=== PATIENT | female | born 1930 | race Caucasian/White ===

== ENCOUNTER 2017-02-06 16:44 | Inpatient (IN) | payer OTHER ==
[~2017-02-06] VITALS: Ht 152.4 cm; Wt 73.0 kg
[2017-02-06] MEDS ORDERED: SODIUM CHLORIDE 0.9% 1000ML 250 ML IV STA (17:38)
[2017-02-06] MEDS ORDERED: SODIUM CHLORIDE 0.9% 1000ML 1,000 ML IV STA (17:38)
--- NOTE | 2017-02-06 17:48 | EMERGENCY ROOM VISIT NOTE ---
History Report prepared by Darya: Eileen Smith Under the Supervision of: Dr. Magen Jett M.D. First contact with patient: 17:12 Chief Complaint: CONFUSION Stated Complaint: WEAKNESS, CONFUSION Nursing Triage Summary: Pt arrives BLS for evalution of 3 week hx of general weakness, forgetting what she was doing. Saw PCP last week, given Z-alex. Pt reports she is no better, and too weak to walk to car to go to ED. Pt reports she lives at home alone; son checks on her. Pt very forgetful. 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 The patient states that her weakness is generalized and not specifically on one side of her body. The patient states that she feels very fatigued to the point where she does not want to get out of bed which she states is very unusual for her. She state she has had a productive clear cough with intermittent fevers as high as 102 degrees Fahrenheit as well for the last two weeks. She states she saw her primary care physician 4 days ago where she was prescribed a Zpac and had a negative chest X-Ray. The patient states she is currently on the third day of her Zpac. The patient's son states that he brought the patient into the ED today because her weakness was so severe today she was unable to open her own food up. He states that the patient has also had worsening orientation recently and has been confused about the time of day which he states is new for the patient. The patient states that she has also had increase urinary urgency to the point where she needs to wear diapers at home. The patient denies any sore throat, SOB, chest pain, abdominal pain, nausea, vomiting or constipation. Her weakness has been getting worse over the last week or so. She does have some chronic mild confusion with dates. She feels that she is not as sharp mentally. 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 Review of Systems See HPI for pertinent positives & negatives. A total of 10 systems reviewed and were otherwise negative. Past Medical & Surgical Medical Problems: (1) Hypothyroidism Surgical Problems: (1) Status post appendectomy (2) Status post cataract extraction (3) Status post tonsillectomy Old medical records were reviewed. Nurse's notes were reviewed and I agree with. Family History Patient reports no known family medical history. Social History Smoking Status: Former Smoker Marital Status: Housing Status: lives alone Occupation Status: retired Current/Historical Medications Scheduled Ascorbic Acid (Vitamin C), 1,000 MG PO DAILY Aspirin (Aspirin Ec), 81 MG PO DAILY Azithromycin (Zithromax Z-Alex), 250 MG PO UD B-Complex Vitamins (Vitamin B Complex), 1 TAB PO DAILY Cholecalciferol (Vitamin D3), 1,000 INTER.UNIT PO DAILY Devil's Claw (Harpagophytum Pr (Devils Claw), 510 MG PO TID Flavoring Agent (Passion Fruit Flavor Swee), 1 DOSE PO BID Flaxseed (Linseed) (Flax Seed Oil), 1,000 MG PO BID Levothyroxine Sodium (Levothyroxine Sodium), 125 MCG PO DAILY Lysine (Lysine), 500 MG PO DAILY Methylsulfonylmethane (Msm), 1,000 MG PO BID Niacinamide (Niacinamide), 100 MG PO DAILY Psyllium (Fiber), 1.04 GM PO DAILY Scheduled PRN Dextromethorphan-Guaifenesin (Mucinex Dm), 1 TAB PO Q12 PRN for Cough Allergies Coded Allergies: No Known Allergies (Unverified , 02/06/17) Physical Exam Vital Signs Date Time Temp Pulse Resp B/P Pulse Ox O2 Delivery O2 Flow Rate FiO2 02/06/17 20:53 72 17 198/69 96 Room Air 02/06/17 18:57 69 20 182/63 97 Room Air 02/06/17 17:01 Room Air 02/06/17 16:56 37.0 72 18 171/82 96 Room Air 02/06/17 16:51 76 Physical Exam General: Non ill appearing older female in no acute distress. HEENT: Normal cephalic atraumatic. Pupils are equal round and reactive to light. Sclerae anicteric. Extraocular movements are intact. Oropharynx is pink with moist mucous membranes. No swelling of the mouth lips or tongue. Neck: Supple with a midline trachea. No meningeal signs or stiffness, no JVD or bruits. No Stridor. Chest: Clear to auscultation bilaterally. No wheezes or rhonchi. No increased work of breathing. Heart: regular rate and rhythm. Abdomen: Soft nontender, nondistended without rebound guarding or rigidity. Extremities: No cyanosis clubbing or edema. No calf tenderness or assymetry Spine/Back. Non tender to palpation. No CVA tenderness Skin: Good turgor without rashes. Neurologic exam: Cranial nerves two through 12 are intact. Motor and sensation are intact and symmetrical throughout. No tremor. Medical Decision & Procedures ER Provider Diagnostic Interpretation: X-ray results as stated below per interpretation by me and the radiologist: CHEST ONE VIEW PORTABLE CLINICAL HISTORY: CHEST PAIN dyspnea COMPARISON STUDY: No previous studies for comparison. FINDINGS: Small bibasilar parenchymal infiltrative change. Small fixed hiatal hernia. Diaphragms smooth. The upper lungs are clear. IMPRESSION: Very small bibasilar parenchymal infiltrative change. Fixed hiatal hernia. Electronically signed by: Chris Peres M.D. 02/06/2017 5:57 PM Dictated Date/Time: 02/06/2017 5:[address] results as stated below per my review and radiologist interpretation: HEAD CT NONCONTRAST CT DOSE: 1375.95 mGy.cm HISTORY: Mental status change weakness, confusion TECHNIQUE: Multiaxial CT images of the head were performed without the use of intravenous contrast. Comparison: None. Findings: The paranasal sinuses and mastoid air cells are clear. The calvarium and skull base are intact. The ventricles and sulci are within normal limits. There is no mass, hematoma, midline shift, or acute infarct. Age-related atrophy. Age-related chronic small vessel change. Impression: Age-related change. No acute process. Electronically signed by: Chris Peres M.D. 02/06/2017 7:20 PM Dictated Date/Time: 02/06/2017 7:19 PM Laboratory Results 02/06/17 18:05 Red Blood Count 3.99, Mean Corpuscular Volume 88.0, Mean Corpuscular Hemoglobin 31.1, Mean Corpuscular Hemoglobin Concent 35.3, Mean Platelet Volume 10.6, Neutrophils (%) (Auto) 63.3, Lymphocytes (%) (Auto) 16.8, Monocytes (%) (Auto) 17.4, Eosinophils (%) (Auto) 0.6, Basophils (%) (Auto) 0.3, Neutrophils # (Auto ) 9.08, Lymphocytes # (Auto) 2.40, Monocytes # (Auto) 2.49, Eosinophils # (Auto ) 0.08, Basophils # (Auto) 0.04 02/06/17 18:05 Test 02/06/17 18:05 02/06/17 18:20 02/06/17 18:37 02/06/17 20:50 White Blood Count 14.32 K/uL (4.8-10.8) Red Blood Count 3.99 M/uL (4.2-5.4) Hemoglobin 12.4 g/dL (12.0-16.0) Hematocrit 35.1 % (37-47) Mean Corpuscular Volume 88.0 fL (80-100) Mean Corpuscular Hemoglobin 31.1 pg (25-34) Mean Corpuscular Hemoglobin Concent 35.3 g/dl (32-36) Platelet Count 257 K/uL (130-400) Mean Platelet Volume 10.6 fL (7.4-10.4) Neutrophils (%) (Auto) 63.3 % Lymphocytes (%) (Auto) 16.8 % Monocytes (%) (Auto) 17.4 % Eosinophils (%) (Auto) 0.6 % Basophils (%) (Auto) 0.3 % Neutrophils # (Auto) 9.08 K/uL (1.4-6.5) Lymphocytes # (Auto) 2.40 K/uL (1.2-3.4) Monocytes # (Auto) 2.49 K/uL (0.11-0.59) Eosinophils # (Auto) 0.08 K/uL (0-0.5) Basophils # (Auto) 0.04 K/uL (0-0.2) RDW Standard Deviation 44.3 fL (36.4-46.3) RDW Coefficient of Variation 13.6 % (11.5-14.5) Immature Granulocyte % (Auto) 1.6 % Immature Granulocyte # (Auto) 0.23 K/uL (0.00-0.02) Anion Gap 7.0 mmol/L (3-11) Est Creatinine Clear Calc Drug Dose 66.7 ml/min Estimated GFR () 98.9 Estimated GFR (Non- 85.4 BUN/Creatinine Ratio 26.4 (10-20) Calcium Level 8.3 mg/dl (8.5-10.1) Total Bilirubin 1.2 mg/dl (0.2-1) Direct Bilirubin 0.4 mg/dl (0-0.2) Aspartate Amino Transf (AST/SGOT) 33 U/L (15-37) Alanine Aminotransferase (ALT/SGPT) 53 U/L (12-78) Alkaline Phosphatase 213 U/L (45-117) Total Creatine Kinase 38 U/L (26-192) Creatine Kinase MB < 0.5 ng/ml (0.5-3.6) Creatine Kinase MB Ratio (0-3.0) Total Protein 7.0 gm/dl (6.4-8.2) Albumin 2.5 gm/dl (3.4-5.0) Lipase 122 U/L (73-393) Thyroid Stimulating Hormone (TSH) 3.300 uIu/ml (0.300-4.500) Urine Color DK YELLOW Urine Appearance CLEAR (CLEAR) Urine pH 5.0 (4.5-7.5) Urine Specific [place] 1.019 (1.000-1.030) Urine Protein TRACE (NEG) Urine Glucose (UA) NEG (NEG) Urine Ketones TRACE (NEG) Urine Occult Blood NEG (NEG) Urine Nitrite NEG (NEG) Urine Bilirubin NEG (NEG) Urine Urobilinogen NEG (NEG) Urine Leukocyte Esterase TRACE (NEG) Urine WBC (Auto) 1-5 /hpf (0-5) Urine RBC (Auto) 0-4 /hpf (0-4) Urine Hyaline Casts (Auto) 1-5 /lpf (0-5) Urine Epithelial Cells (Auto) >30 /lpf (0-5) Urine Bacteria (Auto) NEG (NEG) Urine Pathogenic Casts /lpf (0) Bedside Troponin I 0.030 ng/ml (0-0.045) Laboratory studies as stated above per my review. Medications Administered Medications (Trade) Dose Ordered Sig/Renato Route Start Time Stop Time Status Last Admin Dose Admin Sodium Chloride 250 ml @ 999 mls/hr Q16M STAT IV 02/06/17 17:38 02/06/17 17:53 DC 02/06/17 18:54 999 MLS/HR Sodium Chloride (Nss 1000ml) 1,000 ml @ 100 mls/hr Q10H STAT IV 02/06/17 17:38 02/06/17 22:13 DC 02/06/17 18:54 100 MLS/HR Levofloxacin (Levaquin / D5W) 750 mg NOW STAT IV 02/06/17 20:06 02/06/17 20:08 DC 02/06/17 21:36 750 MG ECG Indication: weakness (generalized) Rate (beats per minute): 69 Rhythm: normal sinus Findings: RBBB, no acute ischemic change, no ectopy Comparison ECG Date: no prior available ED Course 0: At this time the patient was evaluated by the medical student. The student s findings were discussed with me. We discussed a possible treatment plan and differential diagnoses for the patient. 1737: Ordered Sodium Chloride 1,000 ml @ 100 mls/hr IV, Sodium Chloride 250 ml @ 999 mls/hr IV 174: Past medical records reviewed. The patient was evaluated in room C4, and a complete history and physical examination were performed. 1947: I reevaluate the patient and she was resting comfortably. 2005: Ordered Levofloxacin 750 mg IV. 2011: I discussed the case with Dr. Vince Nowak. He agreed to evaluate the patient for further management and care. Medical Decision Differentials include, but are not limited to; UTI, pneumonia, arrhythmia, central neurologic process, and electrolyte or metabolic abnormality. This patient comes in as described above. She was placed in room C4. She is here for treatment and evaluation of weakness. she's had a cough as well. She' s recently started on antibiotic for pneumonia with azithromycin. She looks well. she's not hypoxemic IV access established was gently hydrated with IV normal saline. Chest x-ray is obtained and has some infiltrates in the bases. She does have an elevated white count. She has no acute electrolyte or metabolic abnormalities. She is feeling generally weak and lives by herself . she was given IV Levaquin blood cultures were obtained. I do think she needs to be admitted for further treatment and evaluation of her pneumonia and weakness. Consults Time Called: 2004 Consulting Physician: Dr. Vince Nowak Returned Call: 2011 I discussed the case with Dr. Vince Nowak. He agreed to evaluate the patient for further management and care. Impression Primary Impression: Pneumonia Additional Impression: Weakness Scribe Attestation The scribe's documentation has been prepared under my direction and personally reviewed by me in its entirety. I confirm that the note above accurately reflects all work, treatment, procedures, and medical decision making performed by me. Departure Information Dispostion Being Evaluated By Hospitalist Patient Instructions My [facility] Problem Qualifiers
--- NOTE | 2017-02-06 17:59 | DIAGNOSTIC IMAGING REPORT ---
CHEST ONE VIEW PORTABLE CLINICAL HISTORY: CHEST PAIN dyspnea COMPARISON STUDY: No previous studies for comparison. FINDINGS: Small bibasilar parenchymal infiltrative change. Small fixed hiatal hernia. Diaphragms smooth. The upper lungs are clear. IMPRESSION: Very small bibasilar parenchymal infiltrative change. Fixed hiatal hernia. Electronically signed by: Chris Peres M.D. 02/06/2017 5:57 PM Dictated Date/Time: 02/06/2017 5:57 PM
[2017-02-06 18:34] LABS: BASO % 0.3 %; BASO ABS # 0.04 K/uL (0-0.2); COMPLETE YES; EOS % 0.6 %; HEMATOCRIT 35.1 % (37-47); IG% 1.6 %; LYMPH % 16.8 %; MEAN CORPUSCULAR HEMOGLOBIN 31.1 pg (25-34); MEAN CORPUSCULAR HGB CONC 35.3 g/dl (32-36); MEAN PLATELET VOLUME 10.6 fL (7.4-10.4); MONO % 17.4 %; NEUT % 63.3 %; PLATELET COUNT 257 K/uL (130-400); RED BLOOD COUNT 3.99 M/uL (4.2-5.4); WHITE BLOOD COUNT 14.32 K/uL (4.8-10.8)
[2017-02-06] MEDS ORDERED: METH-736 PO (18:41)
[2017-02-06] MEDS ORDERED: FLAX10007 PO (18:41)
[2017-02-06] MEDS ORDERED: PSYL1CAP4 PO (18:41)
[2017-02-06] MEDS ORDERED: AZITTAB PO (18:41)
[2017-02-06] MEDS ORDERED: CHOL1000 PO (18:41)
[2017-02-06] MEDS ORDERED: [UNRECOGNIZED DRUG - CODE] PO (18:41)
[2017-02-06] MEDS ORDERED: NIAC100T18 PO (18:41)
[2017-02-06] MEDS ORDERED: LEVO125T5 PO (18:41)
[2017-02-06] MEDS ORDERED: ASCO10003 PO (18:41)
[2017-02-06] MEDS ORDERED: B-COTAB18 PO (18:41)
[2017-02-06] MEDS ORDERED: DEXT30TA7 PO (18:41)
[2017-02-06 18:46] LABS: URINE APPEARANCE CLEAR (CLEAR); URINE BILIRUBIN NEG (NEG); URINE COLOR DK YELLOW; URINE EPITHELIAL CELL AUTO >30 /lpf (0-5); URINE NITRITE NEG (NEG); URINE SPECIFIC GRAVITY 1.019 (1.000-1.030); UROBILINOGEN NEG (NEG)
[2017-02-06 18:49] LABS: MANUAL MICROSCOPIC REQUIRED? NO; REVIEW REQ? YES
[2017-02-06] MEDS ORDERED: ASPI81TA28 PO (18:59)
[2017-02-06] MEDS ORDERED: [UNRECOGNIZED DRUG - CODE] PO (18:59)
[2017-02-06] MEDS ORDERED: LYSI500C2 PO (18:59)
[2017-02-06 19:00] LABS: BLOOD UREA NITROGEN 14 mg/dl (7-18); BUN/CREATININE RATIO 26.4 (10-20); CALCIUM 8.3 mg/dl (8.5-10.1); CARBON DIOXIDE 31 mmol/L (21-32); CHLORIDE 96 mmol/L (98-107); CREATININE 0.53 mg/dl (0.60-1.20); GLUCOSE 92 mg/dl (70-99); POTASSIUM 3.1 mmol/L (3.5-5.1); SODIUM 134 mmol/L (136-145)
[2017-02-06 19:11] LABS: ALKALINE PHOSPHATASE 213 U/L (45-117); ALT/SGPT 53 U/L (12-78); AST/SGOT 33 U/L (15-37)
--- NOTE | 2017-02-06 19:22 | DIAGNOSTIC IMAGING REPORT ---
HEAD CT NONCONTRAST CT DOSE: 1375.95 mGy.cm HISTORY: Mental status change weakness, confusion TECHNIQUE: Multiaxial CT images of the head were performed without the use of intravenous contrast. Comparison: None. Findings: The paranasal sinuses and mastoid air cells are clear. The calvarium and skull base are intact. The ventricles and sulci are within normal limits. There is no mass, hematoma, midline shift, or acute infarct. Age-related atrophy. Age-related chronic small vessel change. Impression: Age-related change. No acute process. Electronically signed by: Chris Peres M.D. 02/06/2017 7:20 PM Dictated Date/Time: 02/06/2017 7:19 PM
[2017-02-06] MEDS ORDERED: LEVAQUIN 750MG / 150ML D5W IV STA (20:06)
[2017-02-06] MEDS ORDERED: ACETAMINOPHEN 325 MG TAB PO PRN (21:00)
[2017-02-06] MEDS ORDERED: HEPARIN SOD 5000 UNIT/0.5 ML CARP SQ SCH (21:00)
--- NOTE | 2017-02-06 21:11 | History and Physical ---
History & Physical Date & Time of Service: Feb 06, 2017 @ 2009 . Chief Complaint: fever, cough, weakness, confusion . Primary Care Physician: Randi Cross D.O. . History of Present Illness Source: patient, family, clinic records, hospital records 86 YO female followed by Dr. Cross. History of hypothyroidism and other problems noted below. Her last year. She lives in an apartment. Developed cough productive of clear sputum about 2 weeks ago. Has had temp as high as 101-102. Experiencing intermittent chills. Seen in clinic and prescribed azithromycin. Brought to ED tonight because of persistent cough, progressive weakness. She fell a few nights ago and wasn't able to get up from the floor for a while; no significant injuries. Patient and her son have noted that she has been a bit confused and not quite as sharp as usual. Remote smoking history. She received influenza vaccination this season. She has received pneumococcal vaccination in the past. . Past Medical/Surgical History Chronic and Resolved Medical Problems: (1) Hypothyroidism Status: Chronic Surgical Problems: (1) Status post appendectomy Status: Chronic (2) Status post cataract extraction Status: Chronic (3) Status post tonsillectomy Status: Chronic . Family History MOTHER Thyroid disease SISTER Thyroid disease GRANDFATHER Diabetes mellitus GRANDMOTHER Diabetes mellitus Social History Smoking Status: Former Smoker Alcohol Use: none Marital Status: Occupational Status: retired Immunizations History of Influenza Vaccine: Yes History of Pneumococcal: Yes Multi-Drug Resistant Organisms History of MDRO: No Allergies Coded Allergies: No Known Allergies (Unverified , 02/06/17) Home Medications Scheduled Ascorbic Acid (Vitamin C), 1,000 MG PO DAILY Aspirin (Aspirin Ec), 81 MG PO DAILY Azithromycin (Zithromax Z-Alex), 250 MG PO UD B-Complex Vitamins (Vitamin B Complex), 1 TAB PO DAILY Cholecalciferol (Vitamin D3), 1,000 INTER.UNIT PO DAILY Devil's Claw (Harpagophytum Pr (Devils Claw), 510 MG PO TID Flavoring Agent (Passion Fruit Flavor Swee), 1 DOSE PO BID Flaxseed (Linseed) (Flax Seed Oil), 1,000 MG PO BID Levothyroxine Sodium (Levothyroxine Sodium), 125 MCG PO DAILY Lysine (Lysine), 500 MG PO DAILY Methylsulfonylmethane (Msm), 1,000 MG PO BID Niacinamide (Niacinamide), 100 MG PO DAILY Psyllium (Fiber), 1.04 GM PO DAILY Scheduled PRN Dextromethorphan-Guaifenesin (Mucinex Dm), 1 TAB PO Q12 PRN for Cough Review of Systems Constitutional: + chills, + fatigue, + fever, + weight loss (few pounds with current illness) Eyes: No diplopia, No worsening of vision ENT: No hearing loss, No nasal symptoms, No sore throat Respiratory: + cough, + sputum, No shortness of breath Cardiovascular: No chest pain, No edema Abdomen: No GI bleeding, No diarrhea, No nausea, No pain, No vomiting Musculoskeletal: + joint pain, + muscle pain (mild) Genitourinary - Female: + urinary urgency, No dysuria, No hematuria Neurologic: + balance problems (mild), + memory loss (mild confusion) Endocrine: + fatigue, No excessive thirst, No excessive urination Hematologic / Lymphatic: + abnormal bleeding/bruising (bruises easily) Integumentary: No new/changing skin lesions, No rash Physical Exam Vital Signs Date Time Temp Pulse Resp B/P Pulse Ox O2 Delivery O2 Flow Rate FiO2 02/06/17 20:53 72 17 198/69 96 Room Air 02/06/17 18:57 69 20 182/63 97 Room Air 02/06/17 17:01 Room Air 02/06/17 16:56 37.0 72 18 171/82 96 Room Air 02/06/17 16:51 76 General Appearance: WD/WN, no apparent distress Head: normocephalic, atraumatic Eyes: normal inspection, PERRL, EOMI, sclerae normal ENT: normal ENT inspection, hearing grossly normal, pharynx normal, + pertinent finding (upper and lower dentures) Neck: supple, no adenopathy, thyroid normal, no JVD, trachea midline Respiratory/Chest: no respiratory distress, no accessory muscle use, + pertinent finding (few rales at bases) Cardiovascular: regular rate, rhythm, no edema, no gallop, no JVD, + systolic murmur (II/ systolic murmur LSB), + abnormal peripheral pulses (diminished) Abdomen/GI: normal bowel sounds, non tender, soft, no organomegaly, no pulsatile mass Back: no muscle spasm Extremities/Musculoskelatal: no calf tenderness, normal capillary refill, no pedal edema, + pertinent finding (onychomycosis toenails) Neurologic/Psych: concrete pourer II-XII nml as tested (PERRL, EOMI, no facial palsy, no dysarthria), no motor/sensory deficits (motor upper and lower extremities 5/5), alert, normal mood/affect, oriented x 3 Skin: normal color, warm/dry, no rash, + pertinent finding (ecchymoses right posterior shoulder, right low back) Lymphatic: no adenopathy ((cervical)) Diagnostics Laboratory Results Results Past 24 Hours Test 02/06/17 17:38 02/06/17 18:05 02/06/17 18:20 02/06/17 18:37 Range/Units Creatine Kinase MB Ratio 0-3.0 White Blood Count 14.32 4.8-10.8 K/uL Red Blood Count 3.99 4.2-5.4 M/uL Hemoglobin 12.4 12.0-16.0 g/dL Hematocrit 35.1 37-47 % Mean Corpuscular Volume 88.0 80-100 fL Mean Corpuscular Hemoglobin 31.1 25-34 pg Mean Corpuscular Hemoglobin Concent 35.3 32-36 g/dl Platelet Count 257 130-400 K/uL Mean Platelet Volume 10.6 7.4-10.4 fL Neutrophils (%) (Auto) 63.3 % Lymphocytes (%) (Auto) 16.8 % Monocytes (%) (Auto) 17.4 % Eosinophils (%) (Auto) 0.6 % Basophils (%) (Auto) 0.3 % Neutrophils # (Auto) 9.08 1.4-6.5 K/uL Lymphocytes # (Auto) 2.40 1.2-3.4 K/uL Monocytes # (Auto) 2.49 0.11-0.59 K/uL Eosinophils # (Auto) 0.08 0-0.5 K/uL Basophils # (Auto) 0.04 0-0.2 K/uL RDW Standard Deviation 44.3 36.4-46.3 fL RDW Coefficient of Variation 13.6 11.5-14.5 % Immature Granulocyte % (Auto) 1.6 % Immature Granulocyte # (Auto) 0.23 0.00-0.02 K/uL Sodium Level 134 136-145 mmol/L Potassium Level 3.1 3.5-5.1 mmol/L Chloride Level 96 98-107 mmol/L Carbon Dioxide Level 31 21-32 mmol/L Anion Gap 7.0 3-11 mmol/L Blood Urea Nitrogen 14 7-18 mg/dl Creatinine 0.53 0.60-1.20 mg/dl Est Creatinine Clear Calc Drug Dose 66.7 ml/min Estimated GFR () 98.9 Estimated GFR (Non- 85.4 BUN/Creatinine Ratio 26.4 10-20 Random Glucose 92 70-99 mg/dl Calcium Level 8.3 8.5-10.1 mg/dl Total Bilirubin 1.2 0.2-1 mg/dl Direct Bilirubin 0.4 0-0.2 mg/dl Aspartate Amino Transf (AST/SGOT) 33 15-37 U/L Alanine Aminotransferase (ALT/SGPT) 53 12-78 U/L Alkaline Phosphatase 213 45-117 U/L Total Creatine Kinase 38 26-192 U/L Creatine Kinase MB < 0.5 0.5-3.6 ng/ml Total Protein 7.0 6.4-8.2 gm/dl Albumin 2.5 3.4-5.0 gm/dl Lipase 122 73-393 U/L Thyroid Stimulating Hormone (TSH) 3.300 0.300-4.500 uIu/ml Urine Color DK YELLOW Urine Appearance CLEAR CLEAR Urine pH 5.0 4.5-7.5 Urine Specific [place] 1.019 1.000-1.030 Urine Protein TRACE NEG Urine Glucose (UA) NEG NEG Urine Ketones TRACE NEG Urine Occult Blood NEG NEG Urine Nitrite NEG NEG Urine Bilirubin NEG NEG Urine Urobilinogen NEG NEG Urine Leukocyte Esterase TRACE NEG Urine WBC (Auto) 1-5 0-5 /hpf Urine RBC (Auto) 0-4 0-4 /hpf Urine Hyaline Casts (Auto) 1-5 0-5 /lpf Urine Epithelial Cells (Auto) >30 0-5 /lpf Urine Bacteria (Auto) NEG NEG Urine Pathogenic Casts 0 /lpf Bedside Troponin I 0.030 0-0.045 ng/ml Microbiology Results 02/06/17 Blood Culture, Received Pending 02/06/17 Blood Culture, Received Pending 02/06/17 Urine Culture, Received Pending Diagnostic Radiology CHEST ONE VIEW PORTABLE FINDINGS: Small bibasilar parenchymal infiltrative change. Small fixed hiatal hernia. Diaphragms smooth. The upper lungs are clear. IMPRESSION: Very small bibasilar parenchymal infiltrative change. Fixed hiatal hernia. Electronically signed by: Chris Peres M.D. 02/06/2017 5:[address] NONCONTRAST Impression: Age-related change. No acute process. Electronically signed by: Chris Peres M.D. 02/06/2017 7:20 PM . EKG EKG performed at 17:07 reviewed and demonstrated NSR at 70 / minute, RBBB. No previous tracings at [facility] available for comparison. . Impression Assessment and Plan PNEUMONIA Fever, chills, cough x 2 weeks. Prescribed azithromycin as outpatient without improvement. WBC elevated. Chest x-ray demonstrates bibasilar infiltrates consistent with pneumonia. Does not meet criteria for sepsis. Oxygenating well on RA. Hemodynamically stable. Blood cultures obtained in ED. Patient received a dose of levofloxacin. May be best to avoid additional dosing of quinolones because of patient's confusion. Will change Rx to doxycycline + ceftriaxone. HYPOKALEMIA Serum K = 3.1. Not utilizing any diuretics. Replace. Follow. CONFUSION Mild confusion at home. Head CT negative. Oriented at time of my assessment. Probable mild encephalopathy secondary to pneumonia. Follow. WEAKNESS / FALL Ambulate with assistance. PT / OT evals. HYPOTHYROIDISM Continue levothyroxine. VTE PROPHYLAXIS Moderate risk for VTE. SQ heparin. Ambulate. RESUSCITATION STATUS Discussed with patient and her son. She has a living will. She would like resuscitation attempted in the event of a cardiopulmonary arrest if there is a reasonable chance of a meaningful recovery, but does not want prolonged extraordinary measures if prognosis is poor. Therefore, code status = "Level 1" (full resuscitation). DISPOSITION Admit to Med-Surg Unit. Anticipated discharge to home, pending PT / OT evals. Family Medicine follow-up with Dr. Cross. . VTE Prophylaxis VTE Risk Assessment Done? Y/N: Yes Risk Level: Moderate Given or contraindicated: Unfractionated heparin SQ Social Service Consult >80 yr.& Lives Alone
[2017-02-06 22:17] VITALS: O2SAT 96; Ht 152.4 cm; Wt 73.0 kg
[2017-02-06 22:50] LABS: INR 1.1 (0.9-1.1); PARTIAL THROMBOPLASTIN RATIO 1.1; PROTHROMBIN TIME (PATIENT) 11.8 SECONDS (9.0-12.0)
[2017-02-06] MEDS ORDERED: POTASSIUM CHLORIDE 20 MEQ TABCR PO ONE (23:00)
[2017-02-06 23:08] LABS: INFLUENZA A PCR Neg for Influ A (NEG); INFLUENZA B PCR Neg for Influ B (NEG)
[2017-02-06 23:40] VITALS: BP 147/53
[2017-02-07 01:30] VITALS: O2SAT 96
[2017-02-07] MEDS: LEVOTHYROXINE 125 MCG TAB PO SCH (06:45)
[2017-02-07 07:48] VITALS: BP 179/75; PULSE 78; TEMP 36.8; O2SAT 92
[2017-02-07] MEDS: DOXYCYCLINE HYCLATE 100 MG CAP PO SCH ×2 (08:26→19:41)
[2017-02-07] MEDS: ASPIRIN 81 MG ECTAB PO SCH (08:26)
[2017-02-07] MEDS: POTASSIUM CHLORIDE 20 MEQ TABCR PO SCH ×2 (08:27→19:41)
[2017-02-07] MEDS: HEPARIN SOD 5000 UNIT/0.5 ML CARP SQ SCH ×2 (08:47→20:32)
[2017-02-07] MEDS: CEFTRIAXONE SOD INJ 1 GM in DEXTROSE 5% ADD-VANTAGE 50ML 50 ML IV SCH (08:48)
[2017-02-07 08:52] LABS: BUN/CREATININE RATIO 18.4 (10-20); CREATININE 0.56 mg/dl (0.60-1.20); MAGNESIUM 2.2 mg/dl (1.8-2.4); POTASSIUM 3.2 mmol/L (3.5-5.1)
[2017-02-07 09:01] LABS: CALCIUM 8.1 mg/dl (8.5-10.1)
[2017-02-07 09:37] VITALS: O2SAT 96
[2017-02-07] MEDS ORDERED: POTASSIUM CHLORIDE 10 MEQ TABCR PO ONE (14:15)
[2017-02-07 16:10] VITALS: BP 136/55; PULSE 73; TEMP 37; O2SAT 96
--- NOTE | 2017-02-07 16:35 | Progress Note ---
Internal Med Progress Note Date of Service: Feb 07, 2017. Provider Documentation: SUBJECTIVE: feeling better sob and cough improved afebrile ambulate in room ok no complaints OBJECTIVE: Vital Signs-as noted below Exam: General-alert and awake and oriented ENT-normal hearing Neck-no neck masses Lungs-cta b/l no wheezing or crackles Heart-s1 and s2 heard regular rate and rhythm no murmurs Abdomen-soft bowel sounds present non tender no distension Extremities- no erythema no edema Neuro-alert and awake moves extremities Lab data as noted below. ASSESSMENT & PLAN: PNEUMONIA cxr bibasilar infiltrates failed out pt tx with azithromycin responding well to Rocephin and doxycycline continue same ambulation HYPOKALEMIA replaced f/u labs in am CONFUSION encephalopathy secondary to pneumonia Mild confusion at home. Head CT negative. currently stable. WEAKNESS / FALL Ambulate with assistance. PT / OT evals. HYPOTHYROIDISM Continue levothyroxine. VTE PROPHYLAXIS on sq heparin DISPOSITION pt/ot possible d/c soon Vital Signs: Date Time Temp Pulse Resp B/P Pulse Ox O2 Delivery O2 Flow Rate FiO2 02/07/17 16:10 37.0 73 18 136/55 96 Room Air 02/07/17 09:37 96 Room Air 02/07/17 07:48 36.8 78 18 179/75 92 Room Air 02/07/17 01:30 96 Room Air 02/06/17 23:40 147/53 02/06/17 22:17 96 Room Air 02/06/17 20:53 72 17 198/69 96 Room Air 02/06/17 18:57 69 20 182/63 97 Room Air 02/06/17 17:01 Room Air 02/06/17 16:56 37.0 72 18 171/82 96 Room Air 02/06/17 16:51 76 Lab Results: Results Past 24 Hours Test 02/06/17 17:38 02/06/17 18:05 02/06/17 18:20 02/06/17 18:37 Range/Units Creatine Kinase MB Ratio 0-3.0 White Blood Count 14.32 4.8-10.8 K/uL Red Blood Count 3.99 4.2-5.4 M/uL Hemoglobin 12.4 12.0-16.0 g/dL Hematocrit 35.1 37-47 % Mean Corpuscular Volume 88.0 80-100 fL Mean Corpuscular Hemoglobin 31.1 25-34 pg Mean Corpuscular Hemoglobin Concent 35.3 32-36 g/dl Platelet Count 257 130-400 K/uL Mean Platelet Volume 10.6 7.4-10.4 fL Neutrophils (%) (Auto) 63.3 % Lymphocytes (%) (Auto) 16.8 % Monocytes (%) (Auto) 17.4 % Eosinophils (%) (Auto) 0.6 % Basophils (%) (Auto) 0.3 % Neutrophils # (Auto) 9.08 1.4-6.5 K/uL Lymphocytes # (Auto) 2.40 1.2-3.4 K/uL Monocytes # (Auto) 2.49 0.11-0.59 K/uL Eosinophils # (Auto) 0.08 0-0.5 K/uL Basophils # (Auto) 0.04 0-0.2 K/uL RDW Standard Deviation 44.3 36.4-46.3 fL RDW Coefficient of Variation 13.6 11.5-14.5 % Immature Granulocyte % (Auto) 1.6 % Immature Granulocyte # (Auto) 0.23 0.00-0.02 K/uL Sodium Level 134 136-145 mmol/L Potassium Level 3.1 3.5-5.1 mmol/L Chloride Level 96 98-107 mmol/L Carbon Dioxide Level 31 21-32 mmol/L Anion Gap 7.0 3-11 mmol/L Blood Urea Nitrogen 14 7-18 mg/dl Creatinine 0.53 0.60-1.20 mg/dl Est Creatinine Clear Calc Drug Dose 66.7 ml/min Estimated GFR () 98.9 Estimated GFR (Non- 85.4 BUN/Creatinine Ratio 26.4 10-20 Random Glucose 92 70-99 mg/dl Calcium Level 8.3 8.5-10.1 mg/dl Total Bilirubin 1.2 0.2-1 mg/dl Direct Bilirubin 0.4 0-0.2 mg/dl Aspartate Amino Transf (AST/SGOT) 33 15-37 U/L Alanine Aminotransferase (ALT/SGPT) 53 12-78 U/L Alkaline Phosphatase 213 45-117 U/L Total Creatine Kinase 38 26-192 U/L Creatine Kinase MB < 0.5 0.5-3.6 ng/ml Total Protein 7.0 6.4-8.2 gm/dl Albumin 2.5 3.4-5.0 gm/dl Lipase 122 73-393 U/L Thyroid Stimulating Hormone (TSH) 3.300 0.300-4.500 uIu/ml Urine Color DK YELLOW Urine Appearance CLEAR CLEAR Urine pH 5.0 4.5-7.5 Urine Specific [place] 1.019 1.000-1.030 Urine Protein TRACE NEG Urine Glucose (UA) NEG NEG Urine Ketones TRACE NEG Urine Occult Blood NEG NEG Urine Nitrite NEG NEG Urine Bilirubin NEG NEG Urine Urobilinogen NEG NEG Urine Leukocyte Esterase TRACE NEG Urine WBC (Auto) 1-5 0-5 /hpf Urine RBC (Auto) 0-4 0-4 /hpf Urine Hyaline Casts (Auto) 1-5 0-5 /lpf Urine Epithelial Cells (Auto) >30 0-5 /lpf Urine Bacteria (Auto) NEG NEG Urine Pathogenic Casts 0 /lpf Bedside Troponin I 0.030 0-0.045 ng/ml Test 02/06/17 18:53 02/06/17 20:50 02/07/17 07:09 Range/Units Prothrombin Time 11.8 9.0-12.0 SECONDS Prothromb Time International Ratio 1.1 0.9-1.1 Activated Partial Thromboplast Time 28.0 21.0-31.0 SECONDS Partial Thromboplastin Ratio 1.1 Influenza Type A (RT-PCR) Neg for Influ A NEG Influenza Type B (RT-PCR) Neg for Influ B NEG Sodium Level 136 136-145 mmol/L Potassium Level 3.2 3.5-5.1 mmol/L Chloride Level 98 98-107 mmol/L Carbon Dioxide Level 30 21-32 mmol/L Anion Gap 8.0 3-11 mmol/L Blood Urea Nitrogen 10 7-18 mg/dl Creatinine 0.56 0.60-1.20 mg/dl Est Creatinine Clear Calc Drug Dose 63.1 ml/min Estimated GFR () 97.2 Estimated GFR (Non- 83.8 BUN/Creatinine Ratio 18.4 10-20 Random Glucose 75 70-99 mg/dl Calcium Level 8.1 8.5-10.1 mg/dl Magnesium Level 2.2 1.8-2.4 mg/dl Microbiology Results 02/06/17 Blood Culture, Received Pending 02/06/17 Blood Culture, Received Pending 4/12/17 Urine Culture - Preliminary, Resulted PIN-POINT GROWTH PRESENT, REINCUBATING.
[2017-02-07 22:49] VITALS: BP 181/77; PULSE 81; TEMP 36.9; O2SAT 99
[2017-02-08] MEDS: LEVOTHYROXINE 125 MCG TAB PO SCH (05:45)
[2017-02-08 06:36] LABS: BUN/CREATININE RATIO 18.7 (10-20); CALCIUM 7.9 mg/dl (8.5-10.1); CREATININE 0.57 mg/dl (0.60-1.20); POTASSIUM 4.2 mmol/L (3.5-5.1)
[2017-02-08 07:44] VITALS: BP 180/80; PULSE 77; TEMP 36.9; O2SAT 94
[2017-02-08] MEDS: ASPIRIN 81 MG ECTAB PO SCH (08:11)
[2017-02-08] MEDS: DOXYCYCLINE HYCLATE 100 MG CAP PO SCH (08:12)
[2017-02-08] MEDS: POTASSIUM CHLORIDE 20 MEQ TABCR PO SCH (08:12)
[2017-02-08] MEDS: CEFTRIAXONE SOD INJ 1 GM in DEXTROSE 5% ADD-VANTAGE 50ML 50 ML IV SCH (08:15)
[2017-02-08] MEDS: HEPARIN SOD 5000 UNIT/0.5 ML CARP SQ SCH (08:17)
[2017-02-08 09:44] VITALS: O2SAT 96
[2017-02-08] MEDS ORDERED: AMLO2.5T PO (14:06)
[2017-02-08] MEDS ORDERED: LCTX PO (14:06)
[2017-02-08] MEDS ORDERED: DXY100 PO (14:06)
[2017-02-08] MEDS ORDERED: CEFU1TAB36 PO (14:06)
--- NOTE | 2017-02-08 14:07 | Discharge Instructions ---
Discharge Instructions Date of Service Feb 08, 2017. Admission Reason for Admission: Pneumonia Discharge Discharge Diagnosis / Problem: PNEUMONIA Discharge Goals Goal(s): Decrease discomfort, Improve function Activity Recommendations Activity Limitations: resume your previous activity . Instructions / Follow-Up Instructions / Follow-Up FOLLOWUP WITH FAMILY DOCTOR ON January AT 9:45AM BLOOD PRESSURE FOLLOWUP WITH FAMILY DOCTOR. Current Hospital Diet Patient's current hospital diet: AHA Diet (Heart Healthy) Discharge Diet Recommended Diet: AHA Diet (Heart Healthy) Pending Studies Studies pending at discharge: no Medical Emergencies . Who to Call and When: Medical Emergencies: If at any time you feel your situation is an emergency, please call 911 immediately. . Non-Emergent Contact Non-Emergency issues call your: Primary Care Provider . . "Provider Documentation" section prepared by Ronny Caba. VTE Core Measure Inpt VTE Proph given/why not?: Unfractionated heparin SQ
[2017-02-08] MEDS ORDERED: AMLODIPINE BESYLATE 5 MG TAB PO ONE (14:30)
[2017-02-08 14:34] VITALS: BP 162/77; PULSE 76
[2017-02-08 14:51] VITALS: BP 162/77; PULSE 76; TEMP 36.9; O2SAT 96
[2017-02-08 15:39] VITALS: BP 137/68; PULSE 70; TEMP 37.3; O2SAT 98
--- NOTE | 2017-02-08 16:14 | Progress Note ---
Internal Med Progress Note Date of Service: Feb 08, 2017. Provider Documentation: SUBJECTIVE: resting comfortably ambulated fine sob and cough improved afebrile ok to go home OBJECTIVE: Vital Signs-as noted below Exam: General-alert and awake and oriented ENT-normal hearing Neck-no neck masses Lungs-cta b/l no wheezing or crackles Heart-s1 and s2 heard regular rate and rhythm no murmurs Abdomen-soft bowel sounds present non tender no distension Extremities- no erythema no edema Neuro-alert and awake moves extremities Lab data as noted below. ASSESSMENT & PLAN: PNEUMONIA cxr bibasilar infiltrates failed out pt tx with azithromycin responding well to Rocephin and doxycycline continue same discharged on cefuroxime and doxycycline f/u with pcp HYPOKALEMIA replaced f/u labs in am HTN BP elevated started on Norvasc 2.5mg daily close f/u with pcp CONFUSION encephalopathy secondary to pneumonia Mild confusion at home. Head CT negative. currently stable. WEAKNESS / FALL Ambulate with assistance. PT / OT evals. HYPOTHYROIDISM Continue levothyroxine. Discharged home Vital Signs: Date Time Temp Pulse Resp B/P Pulse Ox O2 Delivery O2 Flow Rate FiO2 02/08/17 15:39 37.3 70 18 137/68 98 Room Air 02/08/17 14:51 36.9 76 18 96 Room Air 02/08/17 14:34 76 162/77 02/08/17 09:44 96 Room Air 02/08/17 07:44 36.9 77 18 180/80 94 Room Air 02/08/17 00:00 Room Air 02/07/17 22:49 36.9 81 20 181/77 99 Room Air Lab Results: Results Past 24 Hours Test 02/08/17 05:10 Range/Units Sodium Level 139 136-145 mmol/L Potassium Level 4.2 3.5-5.1 mmol/L Chloride Level 103 98-107 mmol/L Carbon Dioxide Level 31 21-32 mmol/L Anion Gap 5.0 3-11 mmol/L Blood Urea Nitrogen 11 7-18 mg/dl Creatinine 0.57 0.60-1.20 mg/dl Est Creatinine Clear Calc Drug Dose 62.0 ml/min Estimated GFR () 96.6 Estimated GFR (Non- 83.4 BUN/Creatinine Ratio 18.7 10-20 Random Glucose 88 70-99 mg/dl Calcium Level 7.9 8.5-10.1 mg/dl
--- NOTE | 2017-02-08 17:55 | Discharge Summary ---
Discharge Summary Date of Service Feb 08, 2017. Discharge Summary Admission Date: Feb 06, 2017 at 20:59 Discharge Date: Feb 08, 2017 Discharge Disposition: Home Principal Diagnosis: PNEUMONIA HTN Secondary Diagnoses/Problems: (1) Hypothyroidism Status: Chronic Procedures: CT HEAD: Age-related change. No acute process CXR: Very small bibasilar parenchymal infiltrative change. Fixed hiatal hernia. Medication Reconciliation New Medications: Amlodipine (Norvasc) 2.5 Mg Tab 2.5 MG PO DAILY for 30 Days, TAB 1 Refill Cefuroxime Axetil (Cefuroxime Axetil) 500 Mg Tab 1 TAB PO BID for 5 Days, #10 TAB Lactobacillus Acidophilus (Lactinex) Tab 2 TAB PO BID for 7 Days, TAB Doxycycline Hyclate (Doxycycline Hyclate) 100 Mg Cap 100 MG PO BID for 5 Days, CAP Continued Medications: Ascorbic Acid (Vitamin C) 1,000 Mg Tab 1000 MG PO DAILY Aspirin (Aspirin Ec) 81 Mg Tab 81 MG PO DAILY B-Complex Vitamins (Vitamin B Complex) 1 Tab Tab 1 TAB PO DAILY Cholecalciferol (Vitamin D3) 1,000 Unit Tab 1000 INTER.UNIT PO DAILY, TAB Devil's Claw (Harpagophytum Pr (Devils Claw) 1 Pow Pow 510 MG PO TID Dextromethorphan-Guaifenesin (Mucinex Dm) 1 Tab Tab 1 TAB PO Q12 PRN for Cough, TAB TAKE THIS MEDICATION WITH PLENTY OF WATER Flavoring Agent (Passion Fruit Flavor Swee) 1 Pow Pow 1 DOSE PO BID Flaxseed (Linseed) (Flax Seed Oil) 1,000 Mg Cap 1000 MG PO BID Levothyroxine Sodium (Levothyroxine Sodium) 125 Mcg Tab 125 MCG PO DAILY, TAB Lysine (Lysine) 500 Mg Cap 500 MG PO DAILY Methylsulfonylmethane (Msm) 1,000 Mg Tab 1000 MG PO BID Niacinamide (Niacinamide) 100 Mg Tab 100 MG PO DAILY Psyllium (Fiber) 0.52 Gm Cap 1.04 GM PO DAILY Discontinued Medications: Azithromycin (Zithromax Z-Alex) 250 Mg Tab 250 MG PO UD, #1 PKT PRESCRIBED 02/04/2017 FOLLOWS: TAKE 2 TABLETS ON FIRST DAY THEN ONE TABLET DAILY UNTIL GONE Admission Information HPI (per Admitting provider): 86 YO female followed by Dr. Cross. History of hypothyroidism and other problems noted below. Her last year. She lives in an apartment. Developed cough productive of clear sputum about 2 weeks ago. Has had temp as high as 101-102. Experiencing intermittent chills. Seen in clinic and prescribed azithromycin. Brought to ED tonight because of persistent cough, progressive weakness. She fell a few nights ago and wasn't able to get up from the floor for a while; no significant injuries. Patient and her son have noted that she has been a bit confused and not quite as sharp as usual. Remote smoking history. She received influenza vaccination this season. She has received pneumococcal vaccination in the past. . Physical Exam (per Admitting): General Appearance: WD/WN, no apparent distress Head: normocephalic, atraumatic Eyes: normal inspection, PERRL, EOMI, sclerae normal ENT: normal ENT inspection, hearing grossly normal, pharynx normal, + pertinent finding (upper and lower dentures) Neck: supple, no adenopathy, thyroid normal, no JVD, trachea midline Respiratory/Chest: no respiratory distress, no accessory muscle use, + pertinent finding (few rales at bases) Cardiovascular: regular rate, rhythm, no edema, no gallop, no JVD, + systolic murmur (II/ systolic murmur LSB), + abnormal peripheral pulses ( diminished) Abdomen/GI: normal bowel sounds, non tender, soft, no organomegaly, no pulsatile mass Back: no muscle spasm Extremities/Musculoskelatal: no calf tenderness, normal capillary refill, no pedal edema, + pertinent finding (onychomycosis toenails) Neurologic/Psych: 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 nml as tested (PERRL, EOMI, no facial palsy, no dysarthria), no motor/sensory deficits (motor upper and lower extremities 5/5 ), alert, normal mood/affect, oriented x 3 Skin: normal color, warm/dry, no rash, + pertinent finding (ecchymoses right posterior shoulder, right low back) Lymphatic: no adenopathy ((cervical)) Hospital Course PNEUMONIA cxr bibasilar infiltrates failed out pt tx with azithromycin responding well to Rocephin and doxycycline continue same discharged on cefuroxime and doxycycline f/u with pcp HYPOKALEMIA replaced f/u labs in am HTN BP elevated started on Norvasc 2.5mg daily close f/u with pcp CONFUSION encephalopathy secondary to pneumonia Mild confusion at home. Head CT negative. currently stable. WEAKNESS / FALL Ambulate with assistance. PT / OT evals. HYPOTHYROIDISM Continue levothyroxine. Discharged home Total time spent on discharge = 35MINUTES This includes examination of the patient, discharge planning, medication reconciliation, and communication with other providers. Discharge Instructions Discharge Instructions Date of Service Feb 08, 2017. Admission Reason for Admission: Pneumonia Discharge Discharge Diagnosis / Problem: PNEUMONIA Discharge Goals Goal(s): Decrease discomfort, Improve function Activity Recommendations Activity Limitations: resume your previous activity . Instructions / Follow-Up Instructions / Follow-Up FOLLOWUP WITH FAMILY DOCTOR ON January AT 9:45AM BLOOD PRESSURE FOLLOWUP WITH FAMILY DOCTOR. Current Hospital Diet Patient's current hospital diet: AHA Diet (Heart Healthy) Discharge Diet Recommended Diet: AHA Diet (Heart Healthy) Pending Studies Studies pending at discharge: no Medical Emergencies . Who to Call and When: Medical Emergencies: If at any time you feel your situation is an emergency, please call 911 immediately. . Non-Emergent Contact Non-Emergency issues call your: Primary Care Provider . . "Provider Documentation" section prepared by Ronny Caba. VTE Core Measure Inpt VTE Proph given/why not?: Unfractionated heparin SQ
== END 2017-02-08 16:21 | disposition home or self-care (01) | DRG 193 ==
LOC: ENRESERVDT → ENRESERVTM → EDBD 16:44 → C.EDC 16:45 → C.MS4W 20:59 → UNDOADMIN 20:59
PROVIDERS: ADMIT Hospitalist; ATTEND Internal Medicine
DX: J18.9 Pneumonia, unspecified organism (principal); G93.40 Encephalopathy, unspecified; E03.9 Hypothyroidism, unspecified; Z90.49 Acquired absence of other specified parts of digestive tract; Z98.49 Cataract extraction status, unspecified eye; Z87.891 Personal history of nicotine dependence; Z79.82 Long term (current) use of aspirin; Z79.899 Other long term (current) drug therapy; E87.6 Hypokalemia; I10 Essential (primary) hypertension

== ENCOUNTER 2018-06-21 15:00 | Emergency (ER) | payer OTHER ==
[~2018-06-21 15:00] MED LIST: AMLO2.5T PO; ASCO10003 PO; ASPI81TA28 PO; B-COTAB18 PO; CHOL1000 PO; DEXT30TA7 PO; DXY100 PO; FLAX10007 PO; LEVO125T5 PO; LYSI500C2 PO; METH-736 PO; NIAC100T18 PO; PSYL1CAP4 PO; [UNRECOGNIZED DRUG - CODE] PO; [UNRECOGNIZED DRUG - CODE] PO
[2018-06-21 15:08] VITALS: TEMP 36.7; Ht 152.4 cm
--- NOTE | 2018-06-21 15:55 | DIAGNOSTIC IMAGING REPORT ---
CT HEAD WITHOUT CONTRAST (CT) CLINICAL HISTORY: Head trauma. Scalp hematoma. Headache. COMPARISON STUDY: 02/06/2017 TECHNIQUE: Axial CT of the brain is performed from the vertex to the skull base. IV contrast was not administered for this examination. A dose lowering technique was utilized adhering to the principles of ALARA. CT DOSE: 970.27 mGy.cm FINDINGS: No intra or extra-axial mass lesions are visualized. There is no CT evidence of acute cortical infarction. There is no evidence of midline shift. There is no acute hemorrhage. No calvarial fractures are visualized. There are patchy white matter hypodensities likely on a small vessel basis. There is no evidence of pathologic ventricular dilatation. There is no evidence of acute sinusitis. There is a right frontal scalp hematoma. IMPRESSION: 1. Right frontal scalp hematoma. 2. No acute intracranial findings. No evidence of intracranial hemorrhage. Electronically signed by: Juan Hernandes M.D. 06/21/2018 3:54 PM Dictated Date/Time: 06/21/2018 3:52 PM
--- NOTE | 2018-06-21 16:01 | DIAGNOSTIC IMAGING REPORT ---
CT OF THE CERVICAL SPINE CLINICAL HISTORY: Neck pain status post trauma COMPARISON STUDY: No previous studies for comparison. CT DOSE: TECHNIQUE: CT scan of the cervical spine was performed from the skull base to the thoracic inlet. Images are reviewed in the axial, sagittal, and coronal planes. IV contrast was not administered for this examination. A dose lowering technique was utilized adhering to the principles of ALARA. FINDINGS: The visualized portions of the lung apices reveal no evidence of pneumothorax. The prevertebral soft tissues are normal. No fractures or subluxations are visualized. There are multilevel degenerative changes IMPRESSION: No evidence of acute fracture or traumatic subluxation. Electronically signed by: Juan Hernandes M.D. 06/21/2018 4:00 PM Dictated Date/Time: 06/21/2018 3:58 PM
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
[2018-06-21 17:10] VITALS: BP 177/85; PULSE 92; O2SAT 97
== END 2018-06-21 17:13 | disposition home or self-care (01) ==
LOC: C.EDB 15:02 → C.EDD 17:13
DX: S00.83XA Contusion of other part of head, initial encounter (principal); S51.801A Unspecified open wound of right forearm, initial encounter; S81.001A Unspecified open wound, right knee, initial encounter; V48.4XXA Person boarding or alighting a car injured in noncollision transport accident, initial encounter; E03.9 Hypothyroidism, unspecified; Z79.82 Long term (current) use of aspirin; Z79.899 Other long term (current) drug therapy